=== PATIENT | male | born 1965 | race Caucasian/White ===

== ENCOUNTER → 2017-11-10 | Outpatient (CLI) | payer BC ==
[2017-11-10 11:19] LABS: HCT 47.9 % (39.0-53.0); MCH 30.2 pg (25.0-35.0); MCHC 33.4 g/dL (31.0-37.0); MCV 90.5 fL (80.0-100.0); Mean Platelet Volume 6.5; Platelet Count 246 k/uL (150-450); RBC 5.29 m/uL (4.30-5.90); RDW 12.9 % (11.5-15.5); WBC 7.8 k/uL (3.8-10.6)
[2017-11-10 11:27] LABS: ALT 27 U/L (21-72); AST 25 U/L (17-59); Albumin 4.1 g/dL (3.5-5.0); Alkaline Phosphatase 51 U/L (38-126); Anion Gap 5 mmol/L; Blood Urea Nitrogen 15 mg/dL (9-20); Calcium 9.9 mg/dL (8.4-10.2); Carbon Dioxide 31 mmol/L (22-30); Chloride 106 mmol/L (98-107); Cholesterol 178 mg/dL (<200); Glucose 90 mg/dL (74-99); HDL Cholesterol 59 mg/dL (40-60); LDL Cholesterol,Calculated 107 mg/dL (0-99); Potassium 4.4 mmol/L (3.5-5.1); Sodium 142 mmol/L (137-145); Total Bilirubin 0.7 mg/dL (0.2-1.3); Total Protein 7.2 g/dL (6.3-8.2); Triglycerides 59 mg/dL (<150)
[2017-11-10 18:16] LABS: Hemoglobin A1C 5.5 % (4.0-6.0)
== END | disposition home or self-care (01) ==
LOC: LABWHC1 10:50
PROVIDERS: ATTEND Family Medicine
DX: Z00.00 Encounter for general adult medical examination without abnormal findings (principal)
CPT/HCPCS: 36415; 80053; 80061; 83036; 84153; 85027

== ENCOUNTER 2018-02-01 08:57 | Day surgery (SDC) | payer BC ==
[2018-01-31 09:12] VITALS: BMI 24.4
[~2018-02-01 08:57] MED LIST: LACTATED RINGERS 1,000 ML IV SCH
[2018-02-01 09:30] VITALS: TEMP 98.4
[2018-02-01] MEDS ORDERED: LIDOCAINE 1% 20 ML VIAL (10MG/ML) FOR IV START INTRADERMA ONE (09:30)
[2018-02-01] MEDS ORDERED: PROPOFOL 10 MG/ML 20 ML VIAL IV ONE (09:37)
--- NOTE | 2018-02-01 09:44 | P.GSHP ---
History of Present Illness H&P Date: 02/01/18 Chief Complaint: Screening colonoscopy This is a 52-year-old male who presents today for screening colonoscopy. Patient denies a significant GI complaints. Past Medical History Past Medical History: No Reported History History of Any Multi-Drug Resistant Organisms: None Reported Past Surgical History: Hernia Repair Past Anesthesia/Blood Transfusion Reactions: Motion Sickness, Postoperative Nausea & Vomiting (PONV) Smoking Status: Never smoker - Past Family History Mother Family Medical History: Cancer Father Family Medical History: Deep Vein Thrombosis (DVT) Medications and Allergies Home Medications Medication Instructions Recorded Confirmed Type Multivitamin [Men's Multi-Vitamin] 1 each PO DAILY 01/31/18 02/01/18 History Allergies Allergy/AdvReac Type Severity Reaction Status Date / Time No Known Allergies Allergy Verified 02/01/18 09:10 Surgical - Exam Vital Signs Temp Pulse Resp BP Pulse Ox 98.4 F 63 16 133/66 100 02/01/18 09:27 02/01/18 09:27 02/01/18 09:27 02/01/18 09:27 02/01/18 09:27 - General well developed, well nourished, no distress - Eyes PERRL - ENT normal pinna - Neck no masses - Respiratory normal expansion - Cardiovascular Rhythm: regular - Abdomen Abdomen: soft, non tender Assessment and Plan Assessment: We'll perform screening colonoscopy.
--- NOTE | 2018-02-01 09:59 | P.OP ---
Date of Procedure: 02/01/18 Preoperative Diagnosis: Screening colonoscopy Postoperative Diagnosis: Normal colonoscopy Cecum not visualized due to tortuosity of bowel Procedure(s) Performed: Colonoscopy Anesthesia: MAC Surgeon: Luke Henry Pathology: none sent Condition: stable Disposition: PACU Description of Procedure: Patient's placed on the endoscopy table lateral position. He received IV sedation. Digital rectal exam was performed which revealed no abnormalities. Flexible colonoscope was then placed patient anus and passed throughout the entire colon. The ileocecal valve is not visualized secondary to tortuous valve. Several attempts were made to get into the cecum there was some possible. This point the scope was withdrawn. Remainder of the ascending colon , transverse colon, descending colon and sigmoid colon appeared normal. The scope was then brought back the rectum and this appeared normal. Scope was withdrawn for patient.
[2018-02-01] MEDS ORDERED: ONDANSETRON 4 MG/2 ML VIAL IVP ONE (10:11)
[2018-02-01 10:32] VITALS: BP 137/81; PULSE 64; RESP 18
== END 2018-02-01 10:54 | disposition home or self-care (01) ==
LOC: ORWHC2ENDO 08:57
PROVIDERS: ATTEND Surgery
DX: Z12.11 Encounter for screening for malignant neoplasm of colon (principal); Q43.8 Other specified congenital malformations of intestine
CPT/HCPCS: J2405; J2704; G0121

== ENCOUNTER 2020-01-09 18:46 | Emergency (ER) | payer BC ==
[2020-01-09 18:54] VITALS: BP 147/92; PULSE 63; RESP 18; TEMP 97.1
--- NOTE | 2020-01-09 19:55 | ED ---
Upper Extremity HPI - General Chief Complaint: Extremity Injury, Upper Stated Complaint: R Hand Injury Time Seen by Provider: 01/09/20 19:02 Source: patient, family Mode of arrival: ambulatory Limitations: no limitations - History of Present Illness Initial Comments: 54-year-old male patient presents to the emergency department today for evaluation of left hand injury. Patient states about a half-hour prior to arrival he was cocking a low when the string snapped and hit him in the hand injury the left index finger. He states the area has become swollen and bruised. He does have an abrasion to the finger as well. Denies any other injuries. Does report pain with range of motion but denies any numbness or tingling. Denies previous injury to this area. He is unsure when his last tetanus vaccine was given. Patient denies any headache, neck pain, back pain, chest pain, shortness of breath, dizziness, weakness, abdominal pain, nausea, vomiting, or difficulties with bowel movements or urination. - Related Data Home Medications Medication Instructions Recorded Confirmed Multivitamin [Men's Multi-Vitamin] 1 each PO DAILY 01/31/18 02/01/18 Allergies Allergy/AdvReac Type Severity Reaction Status Date / Time No Known Allergies Allergy Verified 01/09/20 18:54 Review of Systems ROS Statement: Those systems with pertinent positive or pertinent negative responses have been documented in the HPI. ROS Other: All systems not noted in ROS Statement are negative. Past Medical History Past Medical History: No Reported History History of Any Multi-Drug Resistant Organisms: None Reported Past Surgical History: Hernia Repair Past Anesthesia/Blood Transfusion Reactions: Motion Sickness, Postoperative Nausea & Vomiting (PONV) Past Psychological History: No Psychological Hx Reported Smoking Status: Never smoker Past Alcohol Use History: Occasional Past Drug Use History: None Reported - Past Family History Mother Family Medical History: Cancer Father Family Medical History: Deep Vein Thrombosis (DVT) General Exam Limitations: no limitations General appearance: alert, in no apparent distress, other (This is a well- developed, well-nourished adult male patient in no acute distress. Vital signs upon presentation are temperature 97.1F, pulse 63, respirations 18, blood pressure 147/92, pulse ox 98% on room air.) Respiratory exam: Present: normal lung sounds bilaterally. Absent: respiratory distress, wheezes, rales, rhonchi, stridor Cardiovascular Exam: Present: regular rate, normal rhythm, normal heart sounds. Absent: systolic murmur, diastolic murmur, rubs, gallop, clicks GI/Abdominal exam: Present: soft, normal bowel sounds. Absent: distended, tenderness, guarding, rebound, rigid Extremities exam: Present: full ROM, normal capillary refill, other (Soft tissue swelling, ecchymosis noted over the left second MCP joint extending down into the index finger dorsally. There is small abrasion noted over the middle phalan geal joint. Full range of motion intact. Skin is otherwise pink, warm, dry. Cap refills less than 3 seconds. Radial pulse 2+.). Absent: normal inspection, tenderness, pedal edema, joint swelling, calf tenderness Neurological exam: Present: alert, oriented X3, CN II-XII intact Psychiatric exam: Present: normal affect, normal mood Skin exam: Present: warm, dry, intact, normal color. Absent: rash Course Vital Signs 01/09/20 18:48 Temperature 97.1 F L Pulse Rate 63 Respiratory 18 Rate Blood Pressure 147/92 O2 Sat by Pulse 98 Oximetry Medical Decision Making - Medical Decision Making 54 year-old male patient presents to the emergency department today for evaluation of right hand injury when attempting to cock a cross bow. Physical examination did reveal soft tissue swelling and ecchymosis over the dorsal aspect of the right hand specifically over the second MCP joints and the dorsal aspect of the index finger. X-rays were obtained and showed no evidence for acute fracture. Patient did have good range of motion no concern for tendon injury. Wounds were cleansed. He was updated on his tetanus vaccine. He is placed in an Ean wrap. Instructed to follow-up with his primary care physician for recheck in 1-2 days. He is instructed to have repeat x-rays performed in 7- 10 days of his pain symptoms persist. Return parameters were discussed in detail. He verbalizes understanding and agrees with this plan. - Radiology Data Radiology results: report reviewed, image reviewed 3 views of the right hand are obtained. Report is reviewed in its entirety. Impression by Dr. Yu shows negative right hand exam. Disposition Clinical Impression: Contusion of right hand Disposition: HOME SELF-CARE Condition: Good Instructions (If sedation given, give patient instructions): Contusion in Adults (ED) Additional Instructions: Rest, ice, elevate the hand. Use Ean wrap for comfort and support. If you're still having significant pain after a week to 10 days have repeat x-rays performed. Follow up through primary care physician for recheck in 1-2 days. Return to the emergency department immediately for any new, worsening, or concerning symptoms. Is patient prescribed a controlled substance at d/c from ED?: No Referrals: Cricket Geiger DO [Primary Care Provider] - 1-2 days Time of Disposition: 20:13
--- NOTE | 2020-01-09 20:03 | XR ---
EXAMINATION TYPE: XR hand complete LT DATE OF EXAM: 01/09/2020 COMPARISON: NONE HISTORY: Pain. Injury. TECHNIQUE: 3 views FINDINGS: I see no fracture nor dislocation. Joint spaces are normal. Index finger appears intact. Th ere are no pathologic calcifications. IMPRESSION: Negative right hand exam.
[2020-01-09] MEDS ORDERED: DIPH,PERTUS(ACELL)TETVAC-LF 0.5 ML VIAL IM ONE (20:12)
[2020-01-09] MEDS ORDERED: BACITRACIN OINT 1 EACH PACKET TOPICAL ONE (20:12)
== END 2020-01-09 20:43 | disposition home or self-care (01) ==
LOC: EC 18:46
DX: S60.221A Contusion of right hand, initial encounter (principal); W22.8XXA Striking against or struck by other objects, initial encounter; Y93.89 Activity, other specified
CPT/HCPCS: 90471; 90715; 99283

== ENCOUNTER → 2021-04-09 | Outpatient (CLI) | payer BC ==
[2021-04-09 14:07] LABS: ALT 21 U/L (10-49); AST 21 U/L (14-35); Chol/HDL Ratio 2.76 Ratio; LDL Cholesterol,Calculated 89.4 mg/dL (0.0-131.0); VLDL Calculation 11.26 mg/dL (5.00-40.00)
== END | disposition home or self-care (01) ==
LOC: LABWHC1 09:00
PROVIDERS: ATTEND Internal Medicine Interventional Cardiology
DX: E78.2 Mixed hyperlipidemia (principal)
CPT/HCPCS: 36415; 80061; 84450; 84460